=== PATIENT | female | born 1975 | race Caucasian/White ===

== ENCOUNTER → 2019-10-16 | Day surgery (SDC) | payer BC ==
[~2019-10-16] VITALS: Ht 160 cm; Wt 99.8 kg
[~2019-10-16] MED LIST: ASPIRIN EC81 M1 PO; GARLIC1000 MG PO; HYDROCHLOROTHIA25 M2 PO; NORCO 5-325 TA1 EAC2 PO; TOPROL XL50 MG PO
[2019-10-16 15:42] VITALS: BP 152/93
[2019-10-16 16:32] VITALS: BP 152/93
--- NOTE | 2019-10-20 09:08 | O ---
Formerly [facility] [place] [address] OPERATIVE REPORT Name: DEIDRE TRONCOSO Room #: REG [facility] M.Prudence.#: [id number] Admission: 10/16/19 Attend Phys: Samuel Pappas MD Discharge: Date of : 75 Report #: [id number] THIS REPORT FOR: cc: SANA HAGER Physician not on staff Samuel Pappas MD ~ CC: Physician staff Samuel HAGER DATE OF SERVICE: 10/16/2019 PREOPERATIVE DIAGNOSIS: Left knee medial meniscus tear. POSTOPERATIVE DIAGNOSES: 1. Complex tear, posterior horn of the medial meniscus, left knee. 2. Grade 3 chondromalacia, trochlear groove. 3. Grade 2 chondromalacia, medial femoral condyle. PROCEDURES: Left knee arthroscopy with partial medial meniscectomy. SURGEON: Samuel Pappas MD. ANESTHESIA: LMA. TOURNIQUET TIME: 15 minutes. COMPLICATIONS: None. SPECIMENS: None. CONDITION UPON LEAVING THE OPERATING ROOM: Stable. INDICATIONS FOR PROCEDURE: The patient is a 44-year-old female who has had medial-sided left knee pain. She had an MRI scan showing to have a complex tear of posterior horn of the medial meniscus. After discussion with her, she elected for left knee arthroscopy with partial medial meniscectomy and debridement as needed. DESCRIPTION OF PROCEDURE: Risks, benefits, alternatives, complications were discussed in detail with the patient including but not limited to risk of anesthesia, risk of damage to nerves, arteries, blood vessels, risk for infection, bleeding, risk for continued knee pain, need for reoperation. Informed consent was obtained from the patient. Left knee was appropriately marked in the preoperative holding area. IV Ancef was given for preoperative antibiotics. She was brought to the operating room and placed in supine [address] [address] OPERATIVE REPORT Name: KARYNADEIDRE Room #: REG [facility] Stan#: [id number] Admission: 10/16/19 Attend Phys: Samuel Pappas MD Discharge: Date of : 75 Report #: [id number] position on operating room table. LMA anesthesia was induced without complication. Tourniquet was placed on the left thigh. Left lower extremity was prepped and draped in normal sterile fashion. Timeout was performed properly identifying the patient and procedure as well as the instrumentation. All in the operating room were in agreement. Left lower extremity was exsanguinated, tourniquet was inflated. Tourniquet time was approximately 15 minutes. Standard anterolateral portal was established with 11 blade through the skin. Arthroscope was introduced into the patellofemoral compartment and diagnostic arthroscopy was undertaken. Patellofemoral compartment was visualized and found to have grade 3 chondromalacia of the trochlear groove. Medial gutter was visualized and found to be without pathology. Medial compartment was visualized and medial portal was established under arthroscopic visualization. Probe was introduced into the medial compartment. There was noted to be a complex tear of the posterior horn of medial meniscus. This was trimmed back to a stable rim with arthroscopic biter and smoothed back with a shaver. In addition, there was noted to be grade 2 chondromalacia of the medial femoral condyle. The notch was visualized and found to have an intact anterior cruciate ligament. Lateral compartment was visualized and found to have an intact lateral meniscus. Scope was then placed back into the patellofemoral compartment and a small chondroplasty of the trochlear groove was performed, all fluid was allowed to drain from the knee. Knee was injected with 30 mL of 0.5% Marcaine. Incision was closed with 3-0 nylon. Soft dressing of Adaptic, 4 x 4, Webril, Cristian wrap were applied. The patient tolerated this procedure well and went to recovery room under care of anesthesia postoperatively. <ELECTRONICALLY SIGNED> By: Samuel Pappas MD 10/20/19 [id number] Samuel Pappas MD /nt
== END | disposition home or self-care (01) ==
LOC: OR 10:36
PROVIDERS: ATTEND Orthopaedic Surgery
DX: M23.222 Derangement of posterior horn of medial meniscus due to old tear or injury, left knee (principal); M94.262 Chondromalacia, left knee; I10 Essential (primary) hypertension; Z98.890 Other specified postprocedural states; Z79.899 Other long term (current) drug therapy; Z11.59 Encounter for screening for other viral diseases; Z88.8 Allergy status to other drugs, medicaments and biological substances
CPT/HCPCS: 50010; 50101; 50405; 56526; 57103; 57180; 62110; 62900; 70005